=== PATIENT | male | born 1985 | race Caucasian/White ===

== ENCOUNTER 2019-12-01 23:07 | Emergency (ER) | payer BC, SELFPAY ==
--- NOTE | 2019-12-01 23:20 | ED_ITS ---
HPI - Extremity Injury (Lower) General Chief Complaint: Wound/Laceration Stated Complaint: Rt knee injury Time Seen by Provider: 12/01/19 23:10 Source: patient Mode of arrival: Ambulatory Limitations: no limitations History of Present Illness HPI Narrative: 34M nonsmoker with non contributory medical history presents with his friend and an accidental injury to his anterior right knee. Earlier this evening he was kneeling while swinging a hatchet and it bounced off of the wood and hit his knee, causing a laceration. He has pain but can ambulate. He is unsure when his last tetanus was. He is otherwise well and free of complaint. MD complaint: knee injury Onset (ago): hour(s) Type of Injury: laceration Place: street/outdoors Severity: moderate Relieving factors: rest Exacerbating factors: movement and palpation Context: direct blow Associated symptoms: ambulatory Other symptoms: none Treatments prior to arrival: bandage Related Data Previous Rx's Medication Instructions Recorded cephalexin [Keflex] 500 mg PO QID 7 Days #28 cap 12/02/19 Allergies Allergy/AdvReac Type Severity Reaction Status Date / Time No Known Drug Allergies Allergy Verified 12/01/19 23:23 Review of Systems Constitutional Constitutional: Denies chills, Denies fatigue, Denies fever(s), Denies frequent falls, Denies lethargy and Denies weakness Eyes Eyes: Denies change in vision, Denies eye discharge, Denies irritation and Denies loss of vision ENT Ears, Nose, Mouth, and Throat: Denies change in voice, Denies dizziness, Denies neck pain, Denies sore throat and Denies throat swelling Cardiovascular Cardiovascular: Denies chest pain, Denies irregular heart rhythm, Denies lightheadedness, Denies palpitations, Denies dyspnea, Denies dyspnea on exertion and Denies orthopnea Respiratory Respiratory: Denies cough, Denies dyspnea, Denies dyspnea on exertion and Denies wheezing Gastrointestinal Gastrointestinal: Denies abdominal pain, Denies change in bowel habits, Denies diarrhea, Denies nausea and Denies vomiting Musculoskeletal Musculoskeletal: Reports arthralgias, Denies neck pain and Denies numbness Integumentary/Breasts Skin/Breast: Denies pruritus, Denies erythema, Denies rash and Reports wounds Neurologic Neurologic: Denies behavioral changes, Denies confusion, Denies dizziness, Denies frequent falls, Denies loss of vision, Denies numbness and Denies weakness Psychiatric Psychiatric: Denies anxiety, Denies behavioral changes, Denies confusion, Denies depression, Denies homicidal ideation and Denies suicidal ideation Endocrine Endocrine: Denies fatigue, Denies flushing and Denies palpitations Hematologic/Lymphatic Hematologic/Lymphatic: Denies easy bruising Allergic/Immunologic Allergic/Immunologic: Denies urticaria, Denies throat swelling and Denies wheezing Patient History Social History Smoking Status: Never smoker Smoking Status: Never smoker alcohol intake frequency: 0-2 drinks per day Substance Use Type: does not use Exam Narrative Exam Narrative: GENERAL: [34] year old patient appears stated age. Well- nourished, well-developed patient, in mild distress. HEAD: Atraumatic. Normocephalic. EYES: Pupils equal round and reactive. Extraocular motions intact. No scleral icterus. No injection or drainage. ENT: Nose without bleeding, purulent drainage. Throat without erythema, tonsillar hypertrophy or exudate. Airway patent. NECK: Trachea midline. Non tender CARDIOVASCULAR: Regular rate and rhythm without murmurs, gallops, or rubs. RESPIRATORY: Clear to auscultation. Breath sounds equal bilaterally. No wheezes, rales, or rhonchi. GASTROINTESTINAL: Abdomen soft, non-tender, nondistended. EXTREMITIES: 6 cm deep, regular laceration overlying the right anterior knee. Small amount of particulate and dirt irrigated out. No active bleeding. No apparent bony involvement or joint capsule involvement. No edema or joint tenderness. BACK: Nontender without deformity or crepitance. No flank tenderness. NEURO: AOx3. SKIN: No rash or erythema of visible areas Initial Vital Signs Initial Vital Signs: Vital Signs Temperature 98.4 F 12/01/19 23:23 Pulse Rate 73 12/01/19 23:23 Respiratory Rate 17 12/01/19 23:23 Blood Pressure 141/79 H 12/01/19 23:23 Pulse Oximetry 100 12/01/19 23:23 Procedures Laceration Repair Laceration 1: Site: lower extremity Side (If applicable): right Size (cm): 6 Description: flap and irregular Depth: simple, single layer Local Anesthetic: bupivacaine 0.25% and with epi Amount of anesthesia used (mL): 6 Pre-repair: wound explored, irrigated extensively and deep structures intact Skin layer closed with: nylon Size (cm): 3-0 Number of sutures: 7 Technique: simple, interrupted and horizontal mattress Subcutaneous layer closed with: vicryl Size: 4-0 Number of sutures: 1 Technique: simple, interrupted Course Orders Ordered: ED Orders 12/01/19 23:24 XR knee RT 3V Stat Discontinued Medications Hydrocodone Bitart/Acetaminophen (Vicodin 5/325 Prepack) 1 bottle MISC SEEINSTR ONE Stop: 12/02/19 00:20 Last Admin: 12/02/19 00:21 Dose: 1 bottle Documented by: RMARTIN Bupivacaine HCl/Epinephrine Bitart (Sensorcaine 0.5% W/ Epi (Pf)) 5 ml SUBCUT NOW ONE Stop: 12/01/19 23:24 Last Admin: 12/01/19 23:33 Dose: 5 ml Documented by: RMARTIN Cefazolin Sodium (Keflex 250 Mg Prepack) 1 bottle MISC SEEINSTR ONE Stop: 12/01/19 23:24 Last Admin: 12/01/19 23:31 Dose: 250 mg Documented by: RMARTIN Diphtheria/Tetanus/Acell Pertussis (Adacel) 0.5 ml IM .ONCE ONE Stop: 12/01/19 23:24 Last Admin: 12/01/19 23:31 Dose: 0.5 ml Documented by: NIYA Vital Signs Vital signs: Vital Signs - 8 hr 12/01/19 23:23 12/02/19 00:19 Temperature 98.4 F Pulse Rate 73 69 Respiratory Rate 17 16 Blood Pressure 141/79 H 132/60 Pulse Oximetry 100 100 MDM - Extremity Injury (Lower) Imaging Data Extremity x-ray #1: Attestation: I personally reviewed and interpreted this imaging study as follows: My Impression: No fx or foreign body MDM Narrative Medical decision making narrative: 34M with accidental laceration. No apparent deep structure involvement per exam or xray. Extensive discussion with patient regarding potential for infection despite extensive cleaning and ABX. Return precautions given, questions answered to their apparent satisfaction. Discharge Plan Departure Patient Disposition: Home Clinical Impression: Laceration Discharge Date/Time: 12/02/19 00:27 Instructions: DI for Laceration Repair Activity Restrictions/Additional Instructions: Please keep the wound clean and dry to the best of your ability. Please monitor for signs of infection such as redness to the skin or increasing pain. Have the sutures removed by your doctor in about 7 days. If you are unable to get into your doctor, we would be happy to remove the sutures in that same timeframe. Prescriptions: New cephalexin [Keflex] 500 mg capsule 500 mg PO QID 7 Days Qty: 28 RF: 0
[2019-12-01 23:23] VITALS: BP 141/79; PULSE 73; RESP 17; TEMP 36.9; O2SAT 100; BMI 26.3
--- NOTE | 2019-12-01 23:24 | DI.RAD.S_ITS ---
PROCEDURE: XR KNEE RT 3V INDICATIONS: puncture wound over patella TECHNIQUE: 3 views of the knee were acquired. COMPARISON: None. FINDINGS: Bones: No fractures or dislocations. No suspicious bony lesions. Soft tissues: No joint effusion. Soft tissue laceration can be seen superior to the patella. No radiopaque foreign bodies are seen. IMPRESSION: Soft tissue laceration, without a radiopaque foreign body seen. No focal bony abnormality is seen. If there is strong suspicion for developing osteomyelitis, please consider a dedicated MRI without and with contrast for further evaluation (assuming that there is no contraindication to MRI). Dictated by: Kalia Selby M.D. on 12/02/2019 at 10:35 Approved by: Kalia Selby M.D. on 12/02/2019 at 10:36
[2019-12-01] MEDS: TET,DIPH,PERTUSS(ACELL),VAC/PF 0.5 ML SYRINGE IM (23:31)
[2019-12-01] MEDS: cephALEXin 250 MG PREPACK 1 BOTTLE MISC (23:31)
[2019-12-01] MEDS: BUPIVACAINE 0.5% W/ EPI (PF) 30 ML VIAL 5 ML SUBCUT (23:33)
[2019-12-02 00:19] VITALS: BP 132/60; PULSE 69; RESP 16; O2SAT 100
[2019-12-02] MEDS: HYDROCODONE/ACET 5/325 PREPACK 1 BOTTLE MISC (00:21)
== END 2019-12-02 00:27 | disposition home or self-care (01) ==
PROVIDERS: Emergency Provider Emergency Medicine
DX: S81.011A Laceration without foreign body, right knee, initial encounter (principal); W22.8XXA Striking against or struck by other objects, initial encounter; Z23 Encounter for immunization
CPT/HCPCS: 12002; 73562; 90471; 99283; 90715